=== PATIENT | female | born 1960 | race Caucasian/White ===

== ENCOUNTER 2017-11-25 10:31 | Emergency (ER) | payer BC, SELFPAY ==
[2017-11-25 10:46] VITALS: BP 127/77; PULSE 82; RESP 18; TEMP 36.6; O2SAT 97; BMI 30.1
--- NOTE | 2017-11-25 11:21 | HMH.EDUTC ---
[facility] [place] Disposition Clinical Impression: Viral upper respiratory illness Disposition: Home, Self-Care Condition on Discharge: Good Instructions: DI for Viral Upper Respiratory Infection -- Adult Additional Instructions: * No sign of bacterial infection. Likely viral. Virus can take 7-14 days to run their course * Monitor Temp. Follow up if fever develops * Encourage fluids, water, gatorade, powerade, pedialyte if infant/toddler/child * warm salt water gargles * warm fluids * sore throat lozenges * sleep elevated * humidifier/vaporizer * Start steroid today. Helps with inflammation therefore, cough and drainage. Follow directions on package. Rvwd side effects. Pt reports they have taken them before without complications. Prescriptions: predniSONE [Deltasone 10mg tablet] 10 mg PO BID #10 tab Referrals: Herbert Asencio MD [Primary Care Provider] - (Follow up IMMEDIATELY for new or worsening symptoms OR no noticeable improvement over the next 48-72 hours. 911 for difficulty breathing or swallowing) Time of Disposition: 11:39 Medical Decision Making - Jimenez Inquiry Pt receiving controlled substance: No Vital Signs: 11/25/17 10:46 11/25/17 11:31 Temperature 98 F 98.2 F Temperature Source Temporal Artery Scan Pulse Rate 79 Pulse Rate [Right Radial] 82 Respiratory Rate 18 18 Blood Pressure 122/85 Blood Pressure [Right Arm] 127/77 Blood Pressure Mean [Right Arm] 93 02 Sat by Pulse Oximetry 97 Oxygen Delivery Method Room Air Room Air [facility] HPI - General Stated complaint: congestion,cough Time Seen by Provider: 11/25/17 11:22 Mode of Arrival: Family Vehicle Source of Information: Patient Limitations: No Limitations Description of Symptoms (Recalled from Triage Doc. by RN): PT C/O SINUS DRAINAGE/CONGESTION, COUGH, AND RUNNY NOSE. HEENT Symptoms (Recalled from RN notes): Yes (SINUS DRIANAGE/CONGESTION/RUNNY NOSE) Resp Symptoms (Recalled from RN notes): Yes (COUGH) Skin Symptoms (Recalled from RN notes): No MS Symptoms (Recalled from RN notes): No Functional Status (Recalled from RN notes): NA - History of Present Illness Provider Complaint: c/o rhinorrhea, nasal congestion, cough since Monday, 3 days ago. Two co workers w/ bronchitis and one with ear infections. Cough worse yesterday evening despite mucinex until nyquil and vicks on feet then was finally able to sleep. Denies fever, aches, SOA, wheezing. Nonsmoker. - Related Data Previous Rx's Medication Instructions Recorded predniSONE [Deltasone 10mg tablet] 10 mg PO BID #10 tab 11/25/17 Allergies Allergy/AdvReac Type Severity Reaction Status Date / Time Sulfa (Sulfonamide Allergy Verified 11/25/17 10:53 Antibiotics) BEE STINGS Allergy Uncoded 11/25/17 10:53 - Worker's Comp Is this a Worker's Comp case?: No [facility] History I have reviewed the patient's past medical history: Yes Medical History: Reports:: Anxiety, Hyperlipidemia, Hypertension Denies:: Cancer, Diabetes Mellitus Type 1, Diabetes Mellitus Type 2, MRSA Other Surgeries: Yes: Other (detached retina 01/23 and hysterectomy 03/20) Amputation: No Fractures: No - Social History Smoking Status: Never smoker Alcohol Intake: never - Psychiatric History Expresses thoughts of harming self/others: None Suicide Plan Description: No Plan ROS Obtained: Yes Systems reviewed as appropriate & no additional complaints - Constitutional Constitutional: Reports as per HPI, Denies fatigue, Denies poor appetite - Eyes Eyes: Denies eye discharge, Denies itchy eyes - ENT Ears, Nose, Mouth, and Throat: Reports as per HPI, Denies difficulty swallowing, Denies otalgia, Denies pain with swallowing, Reports post nasal drip, Denies sinus pain, Reports sinus pressure, Reports sore throat ( only when I cough ), Denies throat swelling - Cardiovascular Cardiovascular: Denies chest pain, Denies irregular heart rhythm - Respiratory Respiratory: Yes as per HPI, No pain on inspirati
[2017-11-25 11:31] VITALS: BP 122/85; PULSE 79; RESP 18; TEMP 36.8; O2SAT 99
--- NOTE | 2017-11-25 11:32 | ED_ITS ---
[facility] [place] Clinical Impression: Viral upper respiratory illness Disposition: Home, Self-Care Condition on Discharge: Good Instructions: DI for Viral Upper Respiratory Infection -- Adult Additional Instructions: * No sign of bacterial infection. Likely viral. Virus can take 7-14 days to run their course * Monitor Temp. Follow up if fever develops * Encourage fluids, water, gatorade, powerade, pedialyte if infant/toddler/ child * warm salt water gargles * warm fluids * sore throat lozenges * sleep elevated * humidifier/vaporizer * Start steroid today. Helps with inflammation therefore, cough and drainage. Follow directions on package. Rvwd side effects. Pt reports they have taken them before without complications. Prescriptions: predniSONE [Deltasone 10mg tablet] 10 mg PO BID #10 tab Referrals: Herbert Asencio MD [Primary Care Provider] - (Follow up IMMEDIATELY for new or worsening symptoms OR no noticeable improvement over the next 48-72 hours. 911 for difficulty breathing or swallowing) Time of Disposition: 11:39 Medical Decision Making - Jimenez Inquiry Pt receiving controlled substance: No Vital Signs: 11/25/17 10:46 11/25/17 11:31 Temperature 98 F 98.2 F Temperature Source Temporal Artery Scan Pulse Rate 79 Pulse Rate [Right Radial] 82 Respiratory Rate 18 18 Blood Pressure 122/85 Blood Pressure [Right Arm] 127/77 Blood Pressure Mean [Right Arm] 93 02 Sat by Pulse Oximetry 97 Oxygen Delivery Method Room Air Room Air [facility] [place] HPI - General Stated complaint: congestion,cough Time Seen by Provider: 11/25/17 11:22 Mode of Arrival: Family Vehicle Source of Information: Patient Limitations: No Limitations Description of Symptoms (Recalled from Triage Doc. by RN): PT C/O SINUS DRAINAGE /CONGESTION, COUGH, AND RUNNY NOSE. HEENT Symptoms (Recalled from RN notes): Yes (SINUS DRIANAGE/CONGESTION/RUNNY NOSE) Resp Symptoms (Recalled from RN notes): Yes (COUGH) Skin Symptoms (Recalled from RN notes): No MS Symptoms (Recalled from RN notes): No Functional Status (Recalled from RN notes): NA - History of Present Illness Provider Complaint: c/o rhinorrhea, nasal congestion, cough since Monday, 3 days ago. Two co workers w/ bronchitis and one with ear infections. Cough worse yesterday evening despite mucinex until nyquil and vicks on feet then was finally able to sleep. Denies fever, aches, SOA, wheezing. Nonsmoker. - Related Data Previous Rx's Medication Instructions Recorded predniSONE [Deltasone 10mg tablet] 10 mg PO BID #10 tab 11/25/17 Allergies Allergy/AdvReac Type Severity Reaction Status Date / Time Sulfa (Sulfonamide Allergy Verified 11/25/17 10:53 Antibiotics) BEE STINGS Allergy Uncoded 11/25/17 10:53 - Worker's Comp Is this a Worker's Comp case?: No [facility] History I have reviewed the patient's past medical history: Yes Medical History: Reports:: Anxiety, Hyperlipidemia, Hypertension Denies:: Cancer, Diabetes Mellitus Type 1, Diabetes Mellitus Type 2, MRSA Other Surgeries: Yes: Other (detached retina 01/23 and hysterectomy 03/20) Amputation: No Fractures: No - Social History Smoking Status: Never smoker Alcohol Intake: never - Psychiatric History Expresses thoughts of harming self/others: None Suicide Plan Description: No Plan ROS Obtained: Yes Systems reviewed as appropriate
== END 2017-11-25 11:41 | disposition home or self-care (01) ==
PROVIDERS: Emergency Provider Nurse Practitioner Family; Family Provider Internal Medicine Adolescent Medicine; PCP Internal Medicine Adolescent Medicine
DX: J06.9 Acute upper respiratory infection, unspecified (principal); E78.5 Hyperlipidemia, unspecified; I10 Essential (primary) hypertension
CPT/HCPCS: 99201

== ENCOUNTER → 2017-12-14 08:45 | Outpatient (CLI) | payer BC, SELFPAY ==
--- NOTE | 2017-12-14 08:53 | US_ITS ---
US liver Ordering Physician: Lois Lara Patient Age: 57 years: Female HISTORY: ITS.REASON: ELEVATED LIVER ENZYMES elevated liver enzymes Patient on cholesterol medication TECHNIQUE: Ultrasound right upper quadrant and liver COMPARISON : No relevant studies FINDINGS : Pancreas: Fair visualization. Head and body and medial tail of pancreas appear satisfactory Suspect diffuse fatty change given its diffuse echogenic character LIVER no focal lesions no bili ductal dilatation. Liver appears satisfactory Gallbladder. No gallstones gallbladder wall normal to upper normal thickness in some areas Common duct normal measures 3.2 mm at hilum of liver. Right kidney. Normal 10.6 cm length === IMPRESSION: === No significant findings Liver unremarkable. No focal lesions. . Common duct normal with no biliary ductal dilatation Gallbladder. No gallstones Pancreas and right kidney satisfactory
== END ==
PROVIDERS: Family Provider Internal Medicine Adolescent Medicine; PCP Internal Medicine Adolescent Medicine; Visit Provider Nurse Practitioner Family
DX: R74.8 Abnormal levels of other serum enzymes (principal)
CPT/HCPCS: 76705

== ENCOUNTER 2019-03-02 14:48 | Emergency (ER) | payer BC, SELFPAY ==
--- NOTE | 2019-03-02 14:58 | XR_ITS ---
XR forearm LT 2V, XR humerus LT Ordering Physician: Matty Cabral APRN Patient Age: 58 years: Female HISTORY: ITS.REASON: INJURYpain for forearm and upper arm. TECHNIQUE: Left Forearm: AP and lateral view Left Humerus:: AP and lateral view COMPARISON :None prior . ========= LEFT FOREARM: AP and lateral view of forearm reveal no fracture. No acute findings.. Osseous structures well mineralized and intact. This forearm study includes limited 2 views of the left elbow which appears unremarkable. Limited 2 views of the wrist are also included and show no fracture or acute findings.. Note subtle inhomogeneous appearance at the distal radial metaphysis which I believe most likely technical artifact. Typically noting the mottle appearance elsewhere in this region on today's study.... However if pain should persist or progress distal radius or wrist follow-up plain film of breast with more optimal technique suggested. IMPRESSION. Left forearm intact. No fracture. ========= LEFT HUMERUS::. . 2 views of the humerus reveal no fracture. Bones well mineralized and intact. The 2 views of the humerus includes 2 view of the left shoulder which appears satisfactory on these images. IMPRESSION: Negative left humerus.. No fracture
[2019-03-02 15:10] VITALS: BP 169/53; PULSE 45; RESP 20; TEMP 36.8; O2SAT 100; BMI 32.5
--- NOTE | 2019-03-02 15:30 | HMH.EDUTC ---
[facility] [place] Disposition Clinical Impression: Sprain and strain Disposition: Home, Self-Care Condition on Discharge: Good Instructions: How to Prevent Falls, Elbow Sprain Additional Instructions: follow up with pcp follow up with ortho for further testing if no improvement rest Ice with cold pack for 20 minutes remove 20 minutes may repeat for comfort Elevate Ibuprofen every 6 hours as needed for pain or inflammation. If needs something more you can take Tylenol every 4 hours as needed as long as her primary care has told he was okayed for you to take both. Follow-up immediately if new or worsening symptoms or no noticeable improvement over the next 3-5 days. Referrals: Herbert Asencio MD [Primary Care Provider] - Tatyana Willams MD [Physician] - Time of Disposition: 16:05 Medical Decision Making - Jimenez Inquiry Pt receiving controlled substance: No Vital Signs: 03/02/19 15:10 Temperature 98.2 F Temperature Source Oral Pulse Rate [Right Radial] 45 L Respiratory Rate 20 Blood Pressure [Right Arm] 169/53 H Blood Pressure Mean [Right Arm] 91 Blood Pressure Source [Right Arm] Automatic Cuff Blood Pressure Position [Right Arm] Sitting 02 Sat by Pulse Oximetry 100 Oxygen Delivery Method Room Air Orders (Tests/Meds): ORDERS Category Date Time Status Forearm XR left 2 views [XR forearm LT 2V] Stat Exams 03/02/19 14:58 Taken XR humerus LT Stat Exams 03/02/19 14:58 Taken [facility] [place] HPI - General Chief complaint: Fall Stated complaint: Ao fell, left arm apin Time Seen by Provider: 03/02/19 15:30 Mode of Arrival: Ambulatory Source of Information: Patient Limitations: No Limitations Description of Symptoms (Recalled from Triage Doc. by RN): PT C/O LT ARM INJURY FOLLOWING A FALL HEENT Symptoms (Recalled from RN notes): No Resp Symptoms (Recalled from RN notes): No Skin Symptoms (Recalled from RN notes): No MS Symptoms (Recalled from RN notes): Yes (LT ARM INJURY) Functional Status (Recalled from RN notes): N/A - History of Present Illness Provider Complaint: 58 yr old female presents for fall yesterday. Pt states she fell twisted both ankles and landed on left arm. Pt reports left elbow/arm pain - Related Data Home Medications Medication Instructions Recorded Confirmed aspirin 81 mg tablet,delayed 81 mg PO DAILY 07/17/18 09/18/18 release atorvastatin 20 mg tablet 20 mg PO DAILY 07/17/18 09/18/18 cholecalciferol (vitamin D3) 400 400 unit PO DAILY 07/17/18 09/18/18 unit tablet coenzyme Q10 100 mg capsule 100 mg PO DAILY 07/17/18 09/18/18 cranberry concentrate-ascorbic 1 cap PO DAILY cap 07/17/18 09/18/18 acid 4,200 mg-20 mg capsule escitalopram 10 mg tablet 10 mg PO DAILY 07/17/18 09/18/18 lisinopril 10 1 tab PO DAILY 07/17/18 09/18/18 mg-hydrochlorothiazide 12.5 mg tablet Allergies Allergy/AdvReac Type Severity Reaction Status Date / Time Sulfa (Sulfonamide Allergy Verified 09/18/18 10:36 Antibiotics) BEE STINGS Allergy Uncoded 09/18/18 10:36 - Worker's Comp Is this a Worker's Comp case?: No [facility] History - Hepatitis A Screen Drug use history?: No High risk sexual behaviors?: No History of sexually transmitted infection?: No Currently employed?: No Childcare worker?: No Do you have indoor plumbing?: Yes Do you have electricity?: Yes Attestation statement:: This patient has been screened for Hepatitis A risk factors. I have reviewed the patient's past medical history: Yes Medical History: Reports:: Anxiety, Hyperlipidemia, Hypertension, Urinary Tract Infection Denies:: Cancer, Diabetes Mellitus Type 1, Diabetes Mellitus Type 2, Internal Pacemaker, MRSA, Seizures Other Medical History: Denies: Blood Transfusion Reaction Laterality Cases: Bilateral: Tonsillectomy Other Surgeries: Yes: Hysterectomy-Total, Tubal Ligation, Other. No: Pacemaker Amputation: No Fractures: No - Social History Smoking Status: Never smoker Alcohol Intake: never Alcohol Intake
--- NOTE | 2019-03-02 15:35 | PC.NURSE ---
PT TO RAD
[2019-03-02 16:11] VITALS: BP 169/53; PULSE 45; RESP 20; TEMP 36.8; O2SAT 100
== END 2019-03-02 16:13 | disposition home or self-care (01) ==
PROVIDERS: Emergency Provider Nurse Practitioner Family; PCP Internal Medicine Adolescent Medicine
DX: S53.402A Unspecified sprain of left elbow, initial encounter (principal); W01.0XXA Fall on same level from slipping, tripping and stumbling without subsequent striking against object, initial encounter; E78.5 Hyperlipidemia, unspecified; I10 Essential (primary) hypertension; Z88.2 Allergy status to sulfonamides
CPT/HCPCS: 73060; 73090; 99201

== ENCOUNTER → 2020-07-28 10:56 | Outpatient (POV) | payer BC, SELFPAY | PROVIDERS: Visit Provider Dermatology | DX: Z00.00 Encounter for general adult medical examination without abnormal findings (principal) ==

== ENCOUNTER → 2020-08-03 09:55 | Outpatient (CLI) | payer BC, SELFPAY ==
--- NOTE | 2020-08-03 10:00 | XR_ITS ---
PROCEDURE: XR KNEE LT 4V CLINICAL INDICATION: LT knee pain COMPARISON: No exams were available for comparison FINDINGS: No fracture or dislocation. No lytic or blastic change. There is normal mineralization. The joint spaces are well-preserved. No significant degenerative/arthritic changes. No erosive changes evident. Other findings:None. IMPRESSION: No acute findings. Dictated by: John Tavares MD 08/03/2020 10:27 John Tavares MD in OV 08/03/2020 10:27
== END ==
PROVIDERS: PCP Internal Medicine Adolescent Medicine; Visit Provider Orthopaedic Surgery
DX: M25.562 Pain in left knee (principal)
CPT/HCPCS: 73564

== ENCOUNTER → 2020-08-18 13:47 | Outpatient (POV) | payer BC, SELFPAY | PROVIDERS: Visit Provider Dermatology | DX: Z00.00 Encounter for general adult medical examination without abnormal findings (principal) ==

== ENCOUNTER → 2021-07-26 10:41 | Outpatient (CLI) | payer BC, SELFPAY ==
[2021-07-26 11:54] LABS: Alanine Aminotransferase 30 U/L (12-78); Albumin Level 4.2 g/dl (3.5-5.0); Albumin/Globulin Ratio 1.6 (1.1-1.8); Alkaline Phosphatase 129 U/L (38-126); Anion Gap 9.4 mEq/L (5-15); Aspartate Amino Transferase 28 U/L (14-36); Bilirubin,Total 0.5 mg/dl (0.2-1.3); Blood Urea Nitrogen 9 mg/dl (7-17); Calcium 9.4 mg/dl (8.4-10.2); Carbon Dioxide 34 mmol/L (22.0-30.0); Chloride 100 mmol/L (98-107); Chol/HDL Ratio 3.6 (1-3.5); Cholesterol 172 mg/dl (140-200); Estimated Glomerular Filt Rate 125 ml/min (>60); GFR (African American) 151 ML/MIN (>60); Globulin 2.6 g/dL (1.3-3.2); Glucose 92 mg/dl (74-100); HDL Cholesterol 48 mg/dl (40-60); Potassium 4.4 mmoL/L (3.5-5.1); Sodium 139 mmol/L (136-145); Total Protein,Serum 6.8 g/dl (6.3-8.2); Triglycerides 106 mg/dl (30-150); VLDL Cholesterol 21 mg/dL (0-40)
[2021-07-26 12:05] LABS: Direct LDL Cholesterol 108.01 mg/dL (100-129)
[2021-07-26 12:22] LABS: Thyroid Stimulating Hormone 1.19 uIU/mL (0.465-4.68)
== END ==
PROVIDERS: Visit Provider Nurse Practitioner Family
DX: I10 Essential (primary) hypertension (principal); E78.5 Hyperlipidemia, unspecified; R63.5 Abnormal weight gain
CPT/HCPCS: 36415; 80053; 80061; 84443

== ENCOUNTER → 2021-08-31 10:00 | Outpatient (POV) | payer BC, SELFPAY | PROVIDERS: Visit Provider Dermatology | DX: Z00.00 Encounter for general adult medical examination without abnormal findings (principal) ==

== ENCOUNTER → 2022-07-05 11:10 | Outpatient (POV) | payer BC, SELFPAY | PROVIDERS: Visit Provider Dermatology | DX: Z00.00 Encounter for general adult medical examination without abnormal findings (principal) ==

== ENCOUNTER → 2023-08-07 11:15 | Outpatient (CLI) | payer BC, SELFPAY ==
--- OUTSIDE RECORDS SUMMARY | 2023-08-07 11:18 | XMS_ITS | Patient Health Record ---
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 Name Role Phone MiliHerbert estrada Primary Care Provider Lois Lara [phone] ALLERGIES Allergen (clinical drug ingredient) Drug/Non Drug Allergy documented on EMR Reaction Allergy Type Onset Date Status Sulfa hives Drug Allergy Active RESULTS Component Value Reference Range Notes LIPID PANEL, STANDARD (7600) Reviewed date:02/03/2023 02:16:25 PM Interpretation: Performing Lab:ROGELIO, [facility] Alyssa-Sesar [address] [facility] CenterbaldevCommunity [facility] [id number] Aaron Diallo Notes/Report: NON-FASTING; NON-FASTING; NON-FASTING; NON-FASTING FASTING:YES FASTING: YES CHOLESTEROL, TOTAL 159 <200 mg/dL HDL CHOLESTEROL 46 > OR = 50 mg/dL TRIGLYCERIDES 113 <150 mg/dL LDL-CHOLESTEROL 92 Reference range: <100 Desirable range <100 mg/dL for primary prevention; <70 mg/dL for patients with CHD or diabetic patients with > or = 2 CHD risk factors. LDL-C is now calculated using the Samantha calculation, which is a validated novel method providing better accuracy than the Friedewald equation in the estimation of LDL-C. Juan Manuel HARRY et al. KODI. 2013;310(19): 2073-2929 (http://education.[employer].Iter[employer] Studio/faq/UAK132) CHOL/HDLC RATIO 3.5 <5.0 (calc) NON HDL CHOLESTEROL 113 <130 mg/dL (calc)
--- NOTE | 2023-08-07 11:25 | XR_ITS ---
FINAL REPORT CLINICAL HISTORY: JAMA HIP PAIN, no injury COMPARISON: None FINDINGS: RIGHT HIP Two views of the right hip demonstrate no acute fracture or dislocation. The joint spaces appear normal. The visualized bony structures are well aligned. No soft tissue abnormality is seen. IMPRESSION: No acute bony abnormality. Reviewed, Interpreted and Dictated by Gregorio Garza MD Transcribed by Jeanette Garrido Authenticated and [facility]
--- NOTE | 2023-08-07 11:25 | XR_ITS ---
FINAL REPORT CLINICAL HISTORY: JAMA HIP PAIN, no recent injury FINDINGS: LEFT HIP: Two views of the left hip demonstrate no acute fracture or dislocation. The joint spaces appear normal. The visualized bony structures are well aligned. No soft tissue abnormality is seen. IMPRESSION: No acute bony abnormality. Reviewed, Interpreted and Dictated by Gregorio Garza MD Transcribed by Jeanette Garrido Authenticated and . [facility]
== END ==
PROVIDERS: PCP Nurse Practitioner Family; Visit Provider Nurse Practitioner Family
DX: M25.551 Pain in right hip (principal); M25.552 Pain in left hip
CPT/HCPCS: 73502

== ENCOUNTER 2023-09-12 14:28 | Outpatient (POV) | payer BC, SELFPAY | END 2023-09-12 23:59 | disposition home or self-care (01) | LOC: SC 14:28 | PROVIDERS: PCP Nurse Practitioner Family; Visit Provider Dermatology | DX: Z00.00 Encounter for general adult medical examination without abnormal findings (principal) ==

== ENCOUNTER 2023-12-06 09:47 | Outpatient (CLI) | payer BC, SELFPAY ==
--- NOTE | 2023-12-06 09:53 | XR_ITS ---
FINAL REPORT CLINICAL HISTORY: ACUTE TRAUMATIC PAIN LF HIP COMPARISON: None FINDINGS: LEFT HIP: Two views of the left hip demonstrate no acute fracture or dislocation. There is mild heterotrophic change of the sacroiliac joints. The visualized bony structures are well aligned. No soft tissue abnormality is seen. IMPRESSION: No acute bony abnormality. Mild heterotrophic change of the SI joints. Reviewed, Interpreted and Dictated by Gabriel Pratt MD Transcribed by [place]ette Garrido Authenticated and [facility]
== END 2023-12-06 23:59 ==
LOC: RAD 09:48
PROVIDERS: PCP Nurse Practitioner Family; Visit Provider Nurse Practitioner Family
DX: G89.11 Acute pain due to trauma (principal); M25.552 Pain in left hip
CPT/HCPCS: 73502

== ENCOUNTER 2025-03-03 13:14 | Outpatient (CLI) | payer MEDICARE, SELFPAY ==
--- OUTSIDE RECORDS SUMMARY | 2024-12-14 17:30 | XMS_ITS ---
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 Conversion Encounter Medications Medication SIG (Take, Route, Frequency, Duration) Notes Start Date End Date Status Multivitamin - 1 tab(s) orally once a day Active Amoxicillin-Pot Clavulanate 875-125 MG 1 tab(s) orally every 12 hours for 10 days 10/19/2024 Active PROBIOTIC FORMULA (BACILLUS COAGULANS) - 1 CAP(S) ORALLY ONCE A DAY *Please review for potential replacement for e-prescription and drug interaction check* Active Lipitor 20 MG 1 tab(s) orally once a day (at bedtime) for 90 days Active B-12 1000 MCG 1 tab(s) orally once a day for 30 day(s) Active Meclizine HCl 25 MG 1 tab(s) orally 3 times a day prn vertigo for 7 day(s) 12/10/2019 Active Vitamin D3 125 MCG (5000 UT) as directed orally once a day for 30 day(s) Active Aspirin 81 MG 1 tab(s) orally once a day for 30 day(s) Active Escitalopram Oxalate 10 MG 1 tab(s) orally once a day for 90 days Active Lisinopril-hydroCHLOR Othiazide 10-12.5 MG 1 tab(s) orally once a day for 90 days Active Cranberry 500 MG 1 tab po once a day Active Co Q-10 100 MG 1 TAB QD *Please review a nd pick correct strength-formulatio n from [facility]. If intended option is not shown, discontinue and re-order from Quick Search* Active ZyrTEC Allergy 10 MG 1 tab(s) orally once a day Active Encounters Encounter Location Date Provider Diagnosis [facility] [address] [facility] [address] [place] [address] 12/14/2024 Provider Migration Acute non-recurrent maxillary sinusitis J01.00 Assessments Encounter Date Diagnosis (ICD Code) Assessment Notes Treatment Notes Treatment Clinical Notes Section Notes 12/14/2024 Acute non-recurrent maxillary sinusitis (ICD-10 - J01.00) Plan Of Treatment Medication Medication Name Sig Start Date Stop Date Notes Amoxicillin-Pot Clavulanate 875-125 MG 1 tab(s) orally every 12 hours for 10 days 10/19/2024 Next Appt Details Provider Name:Lois Red ce, 08/21/2025 09:00:00 AM, [address] [facility] [address] [facility], [address], [place], [address], Progress Notes * PRAFUL DaB:1960 (64 yo F)Acc No.[id number]:12/14/2024 Patient: Elizabeth COMER Provider: Keely Milton :1960 A ge:64 Y S ex:Female Date:12/14/2024 Address:[facility] [address], [facility], [id number] Pcp:Herbert Asencio Subjective: * Chief Complaints: * [facility] * Medical History: * Medications: T aking PROBIOTIC FORMULA (BACILLUS COAGULANS) - CAPSULE 1 CAP(S) ORALLY ONCE A DAY , Notes to Pharmacist: *Please review for potential replacement for e-prescription and drug interaction check*, Taking B-12 1000 MCG Tablet 1 tab(s) orally once a day , Taking Multivitamin - Tablet 1 tab(s) orally once a day , Taking Cranberry 500 MG Tablet 1 tab po once a day , Taking Co Q-10 100 MG 1 TAB QD , Notes to Pharmacist: *Please review and pick correct strength-formulation from [employer] options. If intended option is not shown, discontinue and re-order from Quick Search*, Taking ZyrTEC Allergy 10 MG Tablet 1 tab(s) orally once a day , Taking Meclizine HCl 25 MG Tablet 1 tab(s) orally 3 times a day prn vertigo , Taking Vitamin D3 125 MCG (5000 UT) Capsule as directed orally once a day , Taking Aspirin 81 MG Tablet Delayed Release 1 tab(s) orally once a day , Taking Escitalopram Oxalate 10 MG Tablet 1 tab(s) orally once a day , Taking Lisinopril-hydroCHLOROthiazide 10-12.5 MG Tablet 1 tab(s) orally once a day , Taking Lipitor 20 MG Tablet 1 tab(s) orally once a day (at bedtime) * Allergies: S ULFA: hives. Objective: * Vitals: Assessment: * Assessment: 1. A cute non-recurrent maxillary sinusitis - J01.00 (Primary) Plan: * Treatment: * * Electronic signature of Prov ider Migration on 03/03/2025 at 01:29 PM EDT Sign off status: Pending * Provider: Keely diamond Migration Date: 0 12/14/2024 Generated for Tatum zacarias/Beena/Jaylenitting on: 0 03/03/2025 01:29 PM EDT
--- OUTSIDE RECORDS SUMMARY | 2025-02-20 05:00 | XMS_ITS ---
Author Organization [facility] Address [address] [place], [place] [address] Care Team Providers Care Train Crew Member Name Role Phone Herbert Asencio Primary Care Provider Lois Lara [phone] Allergies Allergen (clinical drug ingredient) Drug/Non Drug Allergy documented on EMR Reaction Allergy Type Onset Date Status SULFA (uncoded) hives Allergy Acti ve Results Component Value Reference Range Notes LIPID PANEL, STANDARD (7600) Reviewed date:02/24/2025 10:08:04 AM Interpretation: Performing Lab:[facility] [employer] Alyssa[id number] [facility], Sesar ErwinYrafIX[address] Aaron Diallo Notes/Report: NON-FASTING; NON-FASTING; NON-FASTING FASTING:YES FASTING: YES CHOLESTEROL, TOTAL 166 <200 mg/dL HDL CHOLESTEROL 60 > OR = 50 mg/dL TRIGLYCERIDES 100 <150 mg/dL LDL-CHOLESTEROL 86 Reference range: <100 Desirable range <100 mg/dL for primary prevention; <70 mg/dL for patients with CHD or diabetic patients with > or = 2 CHD risk factors. LDL-C is now calculated using the Samantha calculation, which is a validated novel method providing better accuracy than the Friedewald equation in the estimation of LDL-C. Juan Manuel HARRY et al. KODI. 2013;310(19): 7298-1442 (http://education.RedSeguro.com/faq/JGX436) CHOL/HDLC RATIO 2.8 <5.0 (calc) NON HDL CHOLESTEROL 106 <130 mg/dL (calc) For patients with diabetes plus 1 major ASCVD risk factor, treating to a non-HDL-C goal of <100 mg/dL (LDL-C of <70 mg/dL) is considered a therapeutic option. COMPREHENSIVE METABOLIC PANE L (91884) Reviewed date:02/24/2025 10:08:04 AM Interpretation: Performing Lab:[facility] [employer] [id number] [facility], [facility] [id number] Aaron Diallo Notes/Report: NON-FASTING; NON-FASTING; NON-FASTING FASTING:YES FASTING: YES GLUCOSE 79 65-99 mg/dL Fasting reference interval UREA NITROGEN (BUN) 13 7-25 mg/dL CREATININE 0.56 0.50-1.05 mg/dL EGFR 101 > OR = 60 mL/min/1.73m2 BUN/CREATININE RATIO SEE NOTE: 6-22 (calc) Not Reported: BUN and Creatinine are within reference range. SODIUM 140 135-146 mmol/L POTASSIUM 4.5 3.5-5.3 mmol/L CHLORIDE 102 98-110 mmol/L CARBON DIOXIDE 29 20-32 mmol/L CALCIUM 10.1 8.6-10.4 mg/dL PROTEIN, TOTAL 7.2 6.1-8.1 g/dL ALBUMIN 4.7 3.6-5.1 g/dL GLOBULIN 2.5 1.9-3.7 g/dL (calc) ALBUMIN/GLOBULIN RATIO 1.9 1.0-2.5 (calc) BILIRUBIN, TOTAL 0.5 0.2-1.2 mg/dL ALKALINE PHOSPHATASE 116 37-153 U/L AST 16 10-35 U/L ALT 14 6-29 U/L HEMOGLOBIN A1c (496) Reviewed date:02/24/2025 10:08:04 AM Interpretation: Performing Lab:[facility] [employer] [id number] [facility], [facility] MinneapolisKazgBN[address] Aaron Diallo Notes/Report: NON-FASTING; NON-FASTING; NON-FASTING FASTING:YES FASTING: YES HEMOGLOBIN A1c 5.8 <5.7 % For someone without known diabetes, a hemoglobin A1c value between 5.7% and 6.4% is consistent with prediabetes and should be confirmed with a follow-up test. For someone with known diabetes, a value <7% indicates that their diabetes is well controlled. A1c targets should be individualized based on duration of diabetes, age, comorbid conditions, and other considerations. This assay result is consistent with an increased risk of diabetes. Currently, no consensus exists regarding use of hemoglobin A1c for diagnosis of diabetes for children. REASON FOR VISIT Welcome to Medicare Medications Medication SIG (Take, Route, Frequency, Duration) Notes Start Date End Date Status GLP-1 Belting Inspector - as directed Active PROBIOTIC FORMULA (BACILLUS COAGULANS) - 1 CAP(S) ORALLY ONCE A DAY *Please review for potential replacement for e-prescription and drug interaction check* Active Lipitor 20 MG 1 tab(s) orally once a day (at bedtime) for 90 days Active B-12 1000 MCG 1 tab(s) orally once a day for 30 day(s) Active Lisinopril-hydroCHLOR Othiazide 10-12.5 MG 1 tab(s) orally once a day for 90 days Active Escitalopram Oxalate 10 MG 1 tab(s) orally once a day for 90 days Active Vitamin D3 125 MCG (5000 UT) as directed orally once a day for 30 day(s) Active Aspirin 81 MG 1 tab(s) orally once a day for 30 day(s) Active Gemtesa 75 MG 1 tablet Orally Once a day for 30 day(s) 02/20/2025 Active Multivitamin - 1 tab(s) orally once a day Active Cranberry 500 MG 1 tab po once a day Active Co Q-10 100 MG 1 TAB QD *Please review a nd pick correct strength-formulatio n from [employer]IO options. If intended option is not shown, discontinue and re-order from Quick Search* Active ZyrTEC Allergy 10 MG 1 tab(s) orally once a day Active Meclizine HCl 25 MG 1 tab(s) orally 3 times a day prn vertigo for 7 day(s) 12/10/2019 Active Immunizations Vaccine Route Administration Date Status Comme nts Prevnar PCV-21 (Pneumococcal conjugate 20) IM Intramuscular 02/20/2025 Administered Problems Problem Type SNOMED Code ICD Code Onset Dates Problem Status W/U Status Risk Notes Problem [id number] Urge urinary incontinence (N39.41) Active confirmed Problem 855876406 BMI 31.0-31.9,adult (Z68.31) Active confirmed Vital Signs Temperature 97.5 degrees Fahrenheit 02/21/20 25 Blood pressure systolic 112 mm Hg 02/21/20 25 Blood pressure diastolic 78 mm Hg 025 Heart Rate 80 /min 02/20/2025 Height 5 ft 8.75 in in 02/20/2025 Weight 210.2 lbs 02/20/2025 BMI 31.26 kg/m2 02/20/2025 Encounters Encounter Location Date Provider Diagnosis [facility] PED AMILCAR [address] [place] [address] 02/20/2025 Lois Lara Essential hypertensi on I10 ; Welcome to Medicare preventive visit Z00.00 ; Hyperlipidemia LDL goal <100 E78.5 ; Anxiety F41.9 ; Prediabetes R73.03 ; Encounter for immunization Z23 ; Urge urinary incontinence N39.41 ; BMI 31.0-31.9,adult Z68.31 and Asymptomatic postmenopausal state Z78.0 Assessments Encounter Date Diagnosis (ICD Code) Assessment Notes Treatment Notes Treatment Clinical Notes Section Notes 02/20/2025 Essential hypertension (ICD-10 - I10) Pressure well controlled on current regimen 02/20/2025 Welcome to Medicare preventive visit (ICD-10 - Z00.00) Medicare screening guidelines, vaccination recommendations , safety, HRA reviewed 02/20/2025 Hyperlipidemia LDL goal <100 (ICD-10 - E78.5) continue statin therapy 02/20/2025 Anxiety (ICD-10 - F41.9) continue low dose lexapro 02/20/2025 Prediabetes (ICD-10 - R73.03) continued dietary efforts encouraged 02/20/2025 Encounter for immunization (ICD-10 - Z23) 02/20/2025 Urge urinary incontinence (ICD-10 - N39.41) trial of Gemtesa...if not effective will refer to URO for exam 02/20/2025 BMI 31.0-31.9,adult (ICD-10 - Z68.31) complicates all aspects of care, actively working on weight loss 02/20/2025 Asymptomatic postmenopausal state (ICD-10 - Z78.0) Plan Of Treatment Medication Medication Name Sig Start Date Stop Date Notes Gemtesa 75 MG 1 tablet Orally Once a day for 30 day(s) 08/2025 Treatment Notes Assessment Notes Essential hypertension Pressure well con trolled on current regimen Hyperlipidemia LDL goal <[address] atin therapy Anxiety continue low dose le xapro Pending Test Test Name Order Date DEXA Hip and Spine - Screening Next Appt Details Follow Up: 6 Months, Reason: Provider Name:Lois Red ce, 08/21/2025 09:00:00 AM, [address], [address], [place], [address], Progress Notes * Da BASILIOB:1960 (64 yo F)Acc No.[id number]:02/20/2025 Progress Notes Patient: Elizabeth COMER Provider: IVAN Arboleda :1960 A ge:64 Y S ex:Female Date:02/20/2025 Address:[facility] [address], [facility], [id number] Pcp:Herbert Asencio Subjective: * Chief Complaints: * 1 . Welcome to Medicare. * HPI: g en: 64 year old female presents today for routine 6 mo follow up for HTN, HLD and anxiety. Also for Welcome to Medicare. No acute concerns. Denies medication side effects. Taking lexapro 5mg most nights of the week, helps with sleep. mood has been good overall. Colonoscopy 2012- recommended again in 10 years. Cologuard 2022 normal. UTD on Mammogram Has had to stop Wegovy since now covered by Medicare insurance. Taking compounded GLP1I through [facility] which has at least helped her to not gain additional weight, still titrating dose. + snoring, no prior sleep study she also expresses interest in addressing chronic bladder symptoms. has had some urge incontinence for a long time but now having difficulty with urgency. no prior medication nor procedure for this. she is s/p EDMUND. * ROS: F UNCTIONAL STATUS: ADLS I ndependent for all ADL/IADL. R ESPIRATORY: no S hortness of breath. n o C ough. ? C ARDIOLOGY: Reviewed, No Symptoms Reported: Y es. C ONSTITUTIONAL: Weight gain y es. n o F ever. D ERMATOLOGY: Reviewed, No Symptoms Reported: Y es. P ositive for?follows routinely with dermatology. E NDOCRINOLOGY: Reviewed, No Symptoms Reported: Y es. G ASTROENTEROLOGY: Reviewed, No Symptoms Reported: Y es. n o V omiting. n o A bdominal pain. n o D iarrhea. n o C onstipation. M USCULOSKELETAL: Joint stiffness y es. N EUROLOGY: Reviewed, No Symptoms Reported: Y es. P SYCHOLOGY: See HPI Y es. U ROLOGY: See HPI Y es. * Medical History: t otal hysterectomy March 2009, Hypertension, Hyperlipidemia, Plantar fasciitis, Migraines, Retinal detatchment-left eye, Colonoscopy 2012, normal, Cataract-left eye, Basal Cell Cancer removed right chest. * Surgical History: t otal hysterectomy 2008, Tubal ligation , Tonsillectomy , detached retina 2014, bilateral cataract surgery 06/2019 and 07/2019, Basal cell removed from chest 08/2020, Right eye surgery 12/2020, Colonoscopy 2012. * Hospitalization/Major Diagno stic Procedure: H ysterectomy , Childbirth . * Family History: F ather: , Cholesterol, HTN, diagnosed with Hypertension. M other: , Cholesterol, HTN, early dementia, diagnosed with Hypertension. P aternal Grand Father: , Lung Cancer, diagnosed with Heart Disease. P aternal Grand Mother: , diagnosed with Hypertension. M aternal Grand Father: , Leukemia. M aternal Grand Mother: , diagnosed with Hypertension. M aternal uncle: alive, 1 brother had cancer, . M aternal aunt: alive, Heart Surgery. C hildren: alive, daughter-migraines. 2 son(s) , 1 daughter(s) - healthy. . * Social History: S moking A re you a:: nonsmoker. R ecreational drug use: no. Exercise: no. Home smoke detector use: yes. Caffeine: yes, frequency:10-12 oz every 3 days. Living Will: Yes. Alcohol: no. Sexually active: yes. Travel outside [place]: no. Occupation: retired. * Medications: T aking GLP-1 Belting Inspector - Kit as directed , Taking PROBIOTIC FORMULA (BACILLUS COAGULANS) - CAPSULE 1 [...] tab(s) orally once a day (at bedtime) , Discontinued Amoxicillin-Pot Clavulanate 875-125 MG Tablet 1 tab(s) orally every 12 hours , Medication List reviewed and reconciled with the patient * Allergies: S ULFA: hives. Objective: * Vitals: N urse: KJ, Pain: 0, Temp: 97.5, RR: 18, HR: 80, BP: 112/78, Ht: 5 ft 8.75 in, Wt: 210.2, BMI:31.26. * Examination: G eneral Examination: General P leasant and Cooperative, NAD on RA. Heart: R RR, No m/r/g/h, Nl S1S2. Lungs: Clear to auscultation bilaterally. Abdomen: Soft, NT/ND, BS present. Neurologic Exam: Alert and oriented x 3. Skin: w ithout acute rashes. Peripheral pulses: n ormal (2+) bilaterally. Extremities: no clubbing, no edema, 2+ pedal pulses. neck s upple,, no thyromegaly,, no lymphadenopathy,. Psych N ormal Mood/Affect. Assessment: * Assessment: 1. W elcome to Medicare preventive visit - Z00.00 (Primary) 2 . E ssential hypertension - I10 3 . H yperlipidemia LDL goal <100 - E78.5 4 . A nxiety - F41.9 5 . P rediabetes - R73.03 6 . E ncounter for immunization - Z23 7 . U rge urinary incontinence - N39.41 ?8. B OH 31.0-31.9,adult - Z68.31 9 . A symptomatic postmenopausal state - Z78.0 Plan: * Treatment: 2. E ssential hypertension L AB: LIPID PANEL, STANDARD (7600) (Collection Date & Time - 02/20/2025 09:54 AM) Value Reference Range T RIGLYCERIDES 100 <150 - mg/dL * C HOLESTEROL, TOTAL 166 <200 - mg/dL * H DL CHOLESTEROL 60 > OR = 50 - mg/dL * L DL-CHOLESTEROL 86 - mg/dL (calc) * C HOL/HDLC RATIO 2.8 <5.0 - (calc) * N ON HDL CHOLESTEROL 106 <130 - mg/dL (calc) * Deisy Scott 02/24/2025 10:07:57 AM EDT > Patient informedThis lab was reviewed by Deisy Scott on 02/24/2025 at 10:08 AM EDT ?LAB: COMPREHENSIVE METABOLIC PANEL (11813) (Collection Date & Time - 02/20/2025 09:54 AM)* Value Reference Range G LUCOSE 79 65-99 - mg/dL * U SEBASTIÁN NITROGEN (BUN) 13 7-25 - mg/dL * C REATININE 0.56 0.50-1.05 - mg/dL * B UN/CREATININE RATIO SEE NOTE: 6-22 - (calc) * S ODIUM 140 135-146 - mmol/L * P OTASSIUM 4.5 3.5-5.3 - mmol/L * C HLORIDE 102 98-110 - mmol/L * C ARBON DIOXIDE 29 20-32 - mmol/L * C ALCIUM 10.1 8.6-10.4 - mg/dL * P ROTEIN, TOTAL 7.2 6.1-8.1 - g/dL * A LBUMIN 4.7 3.6-5.1 - g/dL * G LOBULIN 2.5 1.9-3.7 - g/dL (calc ) * A LBUMIN/GLOBULIN RATIO 1.9 1.0-2.5 - (calc) * B ILIRUBIN, TOTAL 0.5 0.2-1.2 - mg/dL * A LKALINE PHOSPHATASE 116 37-153 - U/L * A ST 16 10-35 - U/L * A LT 14 6-29 - U/L * E GFR 101 > OR = 60 - mL/min/1 .73m2 * Deisy Scott 02/24/2025 10:07:57 AM EDT > Patient informedThis lab was reviewed by Deisy Scott on 02/24/2025 at 10:08 AM EDT ?LAB: HEMOGLOBIN A1c (496) (Collection Date & Time - 02/20/2025 09:54 AM)* Value Reference Range H EMOGLOBIN A1c 5.8 H <5.7 - % * Deisy Scott 02/24/2025 10:07:57 AM EDT > Patient informedThis lab was reviewed by Deisy Scott on 02/24/2025 at 10:08 AM EDT Notes: Pressure well controlled on current regimen??3.?Hyperlipidemia LDL goal <100?LAB: LIPID PANEL, STANDARD (7600) (Collection Date & Time - 02/20/2025 09:54 AM)* Value Reference Range T RIGLYCERIDES 100 <150 - mg/dL * C HOLESTEROL, TOTAL 166 <200 - mg/dL * H DL CHOLESTEROL 60 > OR = 50 - mg/dL * L DL-CHOLESTEROL 86 - mg/dL (calc) * C HOL/HDLC RATIO 2.8 <5.0 - (calc) * N ON HDL CHOLESTEROL 106 <130 - mg/dL (calc) * Deisy Scott 02/24/2025 10:07:57 AM EDT > Patient informedThis lab was reviewed by Deisy Scott on 02/24/2025 at 10:08 AM EDT ?LAB: COMPREHENSIVE METABOLIC PANEL (75768) (Collection Date & Time - 02/20/2025 09:54 AM)* Value Reference Range G LUCOSE 79 65-99 - mg/dL * U SEBASTIÁN NITROGEN (BUN) 13 7-25 - mg/dL * C REATININE 0.56 0.50-1.05 - mg/dL * B UN/CREATININE RATIO SEE NOTE: 6-22 - (calc) * S ODIUM 140 135-146 - mmol/L * P OTASSIUM 4.5 3.5-5.3 - mmol/L * C HLORIDE 102 98-110 - mmol/L * C ARBON DIOXIDE 29 20-32 - mmol/L * C ALCIUM 10.1 8.6-10.4 - mg/dL * P ROTEIN, TOTAL 7.2 6.1-8.1 - g/dL * A LBUMIN 4.7 3.6-5.1 - g/dL * G LOBULIN 2.5 1.9-3.7 - g/dL (calc ) * A LBUMIN/GLOBULIN RATIO 1.9 1.0-2.5 - (calc) * B ILIRUBIN, TOTAL 0.5 0.2-1.2 - mg/dL * A LKALINE PHOSPHATASE 116 37-153 - U/L * A ST 16 10-35 - U/L * A LT 14 6-29 - U/L * E GFR 101 > OR = 60 - mL/min/1 .73m2 * Deisy Scott 02/24/2025 10:07:57 AM EDT > Patient informedThis lab was reviewed by Deisy Scott on 02/24/2025 at 10:08 AM EDT ?LAB: HEMOGLOBIN A1c (496) (Collection Date & Time - 02/20/2025 09:54 AM)* Value Reference Range H EMOGLOBIN A1c 5.8 H <5.7 - % * Deisy Scott 02/24/2025 10:07:57 AM EDT > Patient informedThis lab was reviewed by Deisy Scott on 02/24/2025 at 10:08 AM EDT Notes: continue statin therapy??4.?Anxiety? Notes: continue low dose lexapro??5.?Prediabetes?LAB: LIPID PANEL, STANDARD (7600) (Collection Date & Time - 02/20/2025 09:54 AM)* Value Reference Range T RIGLYCERIDES 100 <150 - mg/dL * C HOLESTEROL, TOTAL 166 <200 - mg/dL * H DL CHOLESTEROL 60 > OR = 50 - mg/dL * L DL-CHOLESTEROL 86 - mg/dL (calc) * C HOL/HDLC RATIO 2.8 <5.0 - (calc) * N ON HDL CHOLESTEROL 106 <130 - mg/dL (calc) * Deisy Scott 02/24/2025 10:07:57 AM EDT > Patient informedThis lab was reviewed by Deisy Scott on 02/24/2025 at 10:08 AM EDT ?LAB: COMPREHENSIVE METABOLIC PANEL (84531) (Collection Date & Time - 02/20/2025 09:54 AM)* Value Reference Range G LUCOSE 79 65-99 - mg/dL * U SEBASTIÁN NITROGEN (BUN) 13 7-25 - mg/dL * C REATININE 0.56 0.50-1.05 - mg/dL * B UN/CREATININE RATIO SEE NOTE: 6-22 - (calc) * S ODIUM 140 135-146 - mmol/L * P OTASSIUM 4.5 3.5-5.3 - mmol/L * C HLORIDE 102 98-110 - mmol/L * C ARBON DIOXIDE 29 20-32 - mmol/L * C ALCIUM 10.1 8.6-10.4 - mg/dL * P ROTEIN, TOTAL 7.2 6.1-8.1 - g/dL * A LBUMIN 4.7 3.6-5.1 - g/dL * G LOBULIN 2.5 1.9-3.7 - g/dL (calc ) * A LBUMIN/GLOBULIN RATIO 1.9 1.0-2.5 - (calc) * B ILIRUBIN, TOTAL 0.5 0.2-1.2 - mg/dL * A LKALINE PHOSPHATASE 116 37-153 - U/L * A ST 16 10-35 - U/L * A LT 14 6-29 - U/L * E GFR 101 > OR = 60 - mL/min/1 .73m2 * Deisy Scott 02/24/2025 10:07:57 AM EDT > Patient informedThis lab was reviewed by Deisy Scott on 02/24/2025 at 10:08 AM EDT ?LAB: HEMOGLOBIN A1c (496) (Collection Date & Time - 02/20/2025 09:54 AM)* Value Reference Range H EMOGLOBIN A1c 5.8 H <5.7 - % * Deisy Scott 02/24/2025 10:07:57 AM EDT > Patient informedThis lab was reviewed by Deisy Scott on 02/24/2025 at 10:08 AM EDT Clinical Notes: continued dietary efforts encouraged??6.?Urge urinary incontinence? Start Gemtesa Tablet, 75 MG, 1 tablet, Orally, Once a day, 30 day(s), 30.?? Clinical Notes: trial of Gemtesa...if not effective will refer to URO for exam?? 7.?BMI 31.0-31.9,adult? Clinical Notes: complicates all aspects of care, actively working on weight loss??8.?Asymptomatic postmenopausal state?Imaging: DEXA Hip and Spine - Screening* * Immunizations: Prevnar PCV-21 (Pneumococcal conjugate 20) : 0.5 mL (Dose No:1) (Route: Intramuscular) given by JESSI Miller on Left Deltoid (Encounter for immunization) * Procedure Codes: 9 0684 PCV21 VACCINE IM, G0009 ADMINISTRATION-PNEUMONIA VACCINE MEDICARE ONLY, G0402 WELCOME TO MEDICARE 1ST YEAR W/O EKG, G8399 PT W/DXA DOCUMENT OR ORDER, 1123F ADVANCED DIRECTIVE - HAS A LIVING WILL, G9899 Screening diagnostic,film,digital results documented and reviewed, 3017F COLORECTAL CA SCREEN DOC REV, G8417 BMI >=30 CALCUATE W/FOLLOWUP, G8510 NEGATIVE SCREENING F/U NOT REQUIRED, G9903 Pt scrn tbco id as non user, G8752 Most recent systolic blood pressure < 140mmhg, G8754 Most recent diastolic blood pressure < 90mmhg, G9744 PATIENT NOT ELIG D/T ACTIVE DX HTN, [address] HEALTH RISK [id number] * Preventive Medicine: Counseling: L iving will H as living will. MITCH Screening: F alls: Future screening for fall risks H ave you had two or more falls in the past year? N o, H ave you had any falls with injury in the past year? N o. Immunizations: i nfluenza H ave you had a flu shot since the most recent Shruthi 1 ? Y es. P neumonia vaccine: Status for Older Adults A re you up-to-date on your pneumonia vaccine? yes or no y es, PCV 21. T dap U TD. S hingrix D iscussed and will consider. C OVID C ompleted series. R SV vaccination C ompleted for season. Screening / Special Tests: M ammogram S t. E normal 2024. P ap Smear s /p hysterectomy for noncancerous reasons. C olonoscopy C ologuard 2022. B one mineral Density N eeded. L tay Cancer Screening N ot indicated - nonsmoker. * Follow Up: 6 Months * * Sign off status: Completed true * Provider: IVAN Arboleda Date: 0 02/20/2025 Generated for Tatum zacarias/Beena/eTkayliitting on: 0 03/03/2025 01:30 PM EDT History and Physical Notes * Examination Category Sub-Category Detail Notes Category Not es General Examination Heart: RRR, No m/r/g/h, Nl S 1S2 Lungs: Clear to auscultatio n bilaterally Abdomen: Soft, NT/ND, BS pres ent Extremities: no clubbing, no dede a, 2+ pedal pulses Skin: without acute rashes Neurologic Exam: Alert and oriented x 3 Peripheral pulses: normal (2+) bilatera lly neck supple,, no thyromeg devika,, no lymphadenopathy, General Pleasant and Coopera tive, NAD on RA Psych Normal Mood/Affect
--- OUTSIDE RECORDS SUMMARY | 2025-03-03 13:30 | XMS_ITS ---
Author Organization Unknown Medications Medication Instructions Effective Dates (start - stop) Status hydrochlorothiazide 12.5 MG / lisinopril 10 MG Oral Tablet [id number]:00:00.000+0 0 :00 - Completed hydrochlorothiazide 12.5 MG / lisinopril 10 MG Oral Tablet [id number]:00:00.000+0 0 :00 - Completed hydrochlorothiazide 12.5 MG / lisinopril 10 MG Oral Tablet [id number]:00:00.000+0 0 :00 - Completed hydrochlorothiazide 12.5 MG / lisinopril 10 MG Oral Tablet [id number]:00:00.000+0 0 :00 - Completed atorvastatin 20 MG Oral Tablet 2 [id number]:00:00.000+00 :00 - Completed atorvastatin 20 MG Oral Tablet 2 [id number]:00:00.000+00 :00 - Completed atorvastatin 20 MG Oral Tablet 2 [id number]:00:00.000+00 :00 - Completed atorvastatin 20 MG Oral Tablet 2 [id number]:00:00.000+00 :00 - Completed cephalexin 500 MG Oral Capsule 2 [id number]:00:00.000+00 :00 - Completed escitalopram 10 MG Oral Tablet 2 [id number]:00:00.000+00 :00 - Completed escitalopram 10 MG Oral Tablet 2 [id number]:00:00.000+00 :00 - Completed escitalopram 10 MG Oral Tablet 2 [id number]:00:00.000+00 :00 - Completed escitalopram 10 MG Oral Tablet 2 [id number]:00:00.000+00 :00 - Completed escitalopram 10 MG Oral Tablet 2 [id number]:00:00.000+00 :00 - Completed Patient Care team information Name Category Status Period Participants - - Proposed period not known -
--- OUTSIDE RECORDS SUMMARY | 2025-03-03 13:30 | XMS_ITS | Patient Health Record ---
Author Organization [facility] Address [address] [place] [address] Care Team Providers Care Lining Closer Name Role Phone Herbert Asencio Primary Care Provider Lois Lara Unavailable [phone] Migration, Provider Unavailable Unavailable Allergies Allergen (clinical drug ingredient) Drug/Non Drug Allergy documented on EMR Reaction Allergy Type Onset Date Status SULFA (uncoded) hives Allergy Acti ve Results Component Value Reference Range Notes HEMOGLOBIN A1c (496) Reviewed date:02/24/2025 10:08:04 AM Interpretation: Performing Lab:[facility] [id number], [place] Aaron Diallo Notes/Report: NON-FASTING; NON-FASTING; NON-FASTING FASTING:YES [...] A1c for diagnosis of diabetes for children. HEMOGLOBIN A1c (496) Reviewed date:08/26/2024 09:28:37 AM Interpretation: Performing Lab:[facility] [address], [place] Aaron Diallo Notes/Report: NON-FASTING; NON-FASTING; NON-FASTING HEMOGLOBIN A1c 5.7 <5.7 % of total Hgb For someone without known diabetes, a hemoglobin [...] A1c for diagnosis of diabetes for children. COMPREHENSIVE METABOLIC PANE L (10651) Reviewed date:08/26/2024 09:28:37 AM Interpretation: Performing Lab:[facility] MK [facility] [id number] [employer] [place] Aaron Diallo Notes/Report: NON-FASTING; NON-FASTING; NON-FASTING GLUCOSE 80 65-99 mg/dL Fasting reference interval UREA NITROGEN (BUN) 10 7-25 mg/dL CREATININE 0.62 0.50-1.05 mg/dL EGFR 99 > OR = 60 mL/min/1.73m2 BUN/CREATININE RATIO SEE NOTE: 6-22 (calc) Not Reported: BUN and Creatinine are within reference range. SODIUM 140 135-146 mmol/L POTASSIUM 4.3 3.5-5.3 mmol/L CHLORIDE 102 98-110 mmol/L CARBON DIOXIDE 27 20-32 mmol/L CALCIUM 9.9 8.6-10.4 mg/dL PROTEIN, TOTAL 7.3 6.1-8.1 g/dL ALBUMIN 4.6 3.6-5.1 g/dL GLOBULIN 2.7 1.9-3.7 g/dL (calc) ALBUMIN/GLOBULIN RATIO 1.7 1.0-2.5 (calc) BILIRUBIN, TOTAL 0.5 0.2-1.2 mg/dL ALKALINE PHOSPHATASE 117 37-153 U/L AST 18 10-35 U/L ALT 18 6-29 U/L COMPREHENSIVE METABOLIC PANE L (69133) Reviewed date:02/24/2025 10:08:04 AM Interpretation: Performing Lab:[facility]OGELIO [facility] [employer] ([employer]), [facility] System[facility]gpbSG[address] Aaron Diallo Notes/Report: NON-FASTING; NON-FASTING; NON-FASTING FASTING:YES [...] 16 10-35 U/L ALT 14 6-29 U/L LIPID PANEL, STANDARD (7600) Reviewed date:02/24/2025 10:08:04 AM Interpretation: Performing Lab:[facility] [id number] [facility], [facility] SystemHtdhVJ[address] Aaron Diallo Notes/Report: NON-FASTING; NON-FASTING; NON-FASTING FASTING:YES [...] Juan Manuel HARRY et al. KODI. 2013;310(19): 4958-9996 (http://education.Triplify.HSTYLE/faq/RAI459) CHOL/HDLC RATIO 2.8 <5.0 (calc) NON HDL CHOLESTEROL 106 <130 mg/dL (calc) For patients with diabetes plus 1 major ASCVD risk factor, treating to a non-HDL-C goal of <100 mg/dL (LDL-C of <70 mg/dL) is considered a therapeutic option. LIPID PANEL, STANDARD (7600) Reviewed date:08/26/2024 09:28:37 AM Interpretation: Performing Lab:CB, [facility] [address], [place]cl[place] Aaron Diallo Notes/Report: NON-FASTING; NON-FASTING; NON-FASTING CHOLESTEROL, TOTAL 166 <200 mg/dL HDL CHOLESTEROL 62 > OR = 50 mg/dL TRIGLYCERIDES 100 <150 mg/dL LDL-CHOLESTEROL 84 Reference range: <100 Desirable range <100 mg/dL for primary prevention; <70 mg/dL for patients with CHD or diabetic patients with > or = 2 CHD risk factors. LDL-C is now calculated using the Samantha calculation, which is a validated novel method providing better accuracy than the Friedewald equation in the estimation of LDL-C. Juan Manuel HARRY et al. KODI. 2013;310(19): 0538-9539 (http://education.Triplify.HSTYLE/faq/PMD620) CHOL/HDLC RATIO 2.7 <5.0 (calc) NON HDL CHOLESTEROL 104 <130 mg/dL (calc) For patients with diabetes plus 1 major ASCVD risk factor, treating to a non-HDL-C goal of <100 mg/dL (LDL-C of <70 mg/dL) is considered a therapeutic option. Medications Medication SIG (Take, Route, Frequency, Duration) Notes Start Date End Date Status GLP-1 Endoscopy Support Specialist - as directed Active Lisinopril-hydroCHLOR Othiazide 10-12.5 MG 1 tab(s) orally once a day for 90 days Active PROBIOTIC FORMULA (BACILLUS COAGULANS) - 1 CAP(S) ORALLY ONCE A DAY *Please review for potential replacement for e-prescription and drug interaction check* Active Lipitor 20 MG 1 tab(s) orally once a day (at bedtime) for 90 days Active B-12 1000 MCG 1 tab(s) orally once a day for 30 day(s) Active Multivitamin - 1 tab(s) orally once a day Active Escitalopram Oxalate 10 MG 1 tab(s) orally once a day for 90 days Active Vitamin D3 125 MCG (5000 UT) as directed orally once a day for 30 day(s) Active Aspirin 81 MG 1 tab(s) orally once a day for 30 day(s) Active Cranberry 500 MG 1 tab po once a day Active Co Q-10 100 MG 1 TAB QD *Please review a nd pick correct strength-formulatio n from [employer] options. If intended option is not shown, discontinue and re-order from Quick Search* Active ZyrTEC Allergy 10 MG 1 tab(s) orally once a day Active Meclizine HCl 25 MG 1 tab(s) orally 3 times a day prn vertigo for 7 day(s) 12/10/2019 Active Gemtesa 75 MG 1 tablet Orally Once a day for 30 day(s) 02/20/2025 Active Immunizations Vaccine Route Administration Date Status Comme nts Prevnar PCV-21 (Pneumococcal conjugate 20) IM Intramuscular 02/20/2025 Administered Influenza-Fluzone 3+years (NON-MEDICARE) IM Intramuscular 06/15/2015 Administered Influenza-Fluzone 3+years (NON-MEDICARE) IM Intramuscular 06/22/2016 Administered Influenza-Fluzone 3+years (NON-MEDICARE) IM Intramuscular 06/05/2017 Administered Influenza-Fluzone 3+years (NON-MEDICARE) IM Intramuscular 06/07/2018 Administered Fluzone High Dose IM Intramuscular 08/22/2024 Administered FLUZONE 6MO - OLDER IM Intramuscular 06/03/2019 Administer ed FLUZONE 6MO - OLDER IM Intramuscular 08/07/2023 Administer ed Flublok IM Intramuscular 07/20/2020 Administered Flublok IM Intramuscular 07/28/2022 Administered Arexvy IM Intramuscular 08/22/2024 Administered Adacel (Tdap) IM Intramuscular 03/15/2016 Administered Problems Problem Type SNOMED Code ICD Code Onset Dates Problem Status W/U Status Risk Notes Problem [id number] Obesity (BMI 30.0-34.9) (E66.9) Active confirmed Problem 00682533 Anxiety (F41.9) Active confirmed Problem 37606160 Hyperlipidemia L DL goal <100 (E78.5) Active confirmed Problem 96288256 Essential hypertension (I10) Active confirmed Problem 444231374 BMI 34.0-34.9,adult (Z68.34) Active confirmed Problem 638300927 BMI 31.0-31.9,adult (Z68.31) Active confirmed Problem 581271393 BMI 33.0-33.9,adult (Z68.33) Active confirmed Problem 66643892 Allergic rhiniti s due to other allergen (J30.89) Active confirmed Problem 83310056 PVC (premature ventricular contraction) (I49.3) Active confirmed Problem 768253912 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) Active confirmed Problem 77076987 Urge urinary incontinence (N39.41) Active confirmed Problem 344858158 Benign paroxysma l positional vertigo, bilateral (H81.13) Active confirmed Problem 630190294 Urinary incontinence, mixed (N39.46) Active confirmed Vital Signs Heart Rate 80 /min 02/20/2025 Temperature 97.5 degrees Fahrenheit 02/20/2025 Blood pressure diastolic 78 mm Hg 02/20/2025 Height 5 ft 8.75 in in 02/20/2025 Blood pressure systolic 112 mm Hg 02/20/2025 Weight 210.2 lbs 02/20/2025 BMI 31.26 kg/m2 02/20/2025 Encounters Encounter Location Date Provider Diagnosis [facility] [address] [facility] [address] [place] [address] 12/14/2024 Provider Migration Acute non-recurrent maxillary sinusitis J01.00 [facility] [address] [place] [address] 08/22/2024 Lois Lara Hyperlipidemia LDL goal <100 E78.5 ; Anxiety F41.9 ; Essential hypertension I10 ; Prediabetes R73.03 ; BMI 28.0-28.9,adult Z68.28 and Immunization(s) administered Z23 [facility] [address] [facility] [address] [place] [address] 10/19/2024 Lois Lara Acute non-recurrent maxillary sinusitis J01.00 and Lower resp. tract infection J22 [facility] [address] [facility] [address] [place] [address] 02/20/2025 Lois Lara Essential hypertensi on I10 ; Welcome to Medicare preventive visit Z00.00 ; Hyperlipidemia LDL goal <100 E78.5 ; Anxiety F41.9 ; Prediabetes R73.03 ; Encounter for immunization Z23 ; Urge urinary incontinence N39.41 ; BMI 31.0-31.9,adult Z68.31 and Asymptomatic postmenopausal state Z78.[address] [facility] [address] [address] 10/07/2024 Lois Lara Assessments Encounter Date Diagnosis (ICD Code) Assessment Notes Treatment Notes Treatment Clinical Notes Section Notes 08/22/2024 Hyperlipidemia LDL goal <100 (ICD-10 - E78.5) continue statin therapy 10/19/2024 Acute non-recurrent maxillary sinusitis (ICD-10 - J01.00) Suspect possible pneumonia as well. Postviral. Recommend starting Augmentin as noted. Continue Flonase, Mucinex, pulmonary toilet and good hydration. Strict return precautions reviewed 10/19/2024 Lower resp. tract infection (ICD-10 - J22) 12/14/2024 Acute non-recurrent maxillary sinusitis (ICD-10 - J01.00) 02/20/2025 Essential hypertension (ICD-10 - I10) Pressure well controlled on current regimen 02/20/2025 Welcome to Medicare preventive visit (ICD-10 - Z00.00) Medicare screening guidelines, vaccination recommendations , safety, HRA reviewed 08/22/2024 Anxiety (ICD-10 - F41.9) continue low dose lexapro 02/20/2025 Hyperlipidemia LDL goal <100 (ICD-10 - E78.5) continue statin therapy 08/22/2024 Essential hypertension (ICD-10 - I10) Pressure well controlled on current regimen, very happy with weight loss. Monitoring labs today as noted. 08/22/2024 Prediabetes (ICD-10 - R73.03) continued dietary efforts encouraged, add exercise, hopeful to maintain weight loss since stopping Wegovy 02/20/2025 Anxiety (ICD-10 - F41.9) continue low dose lexapro 02/20/2025 Prediabetes (ICD-10 - R73.03) continued dietary efforts encouraged 08/22/2024 BMI 28.0-28.9,adult (ICD-10 - Z68.28) 08/22/2024 Immunization(s) administered (ICD-10 - Z23) 02/20/2025 Encounter for immunization (ICD-10 - Z23) 02/20/2025 Urge urinary incontinence (ICD-10 - N39.41) trial of Gemtesa...if not effective will refer to URO for exam 02/20/2025 BMI 31.0-31.9,adult (ICD-10 - Z68.31) complicates all aspects of care, actively working on weight loss 02/20/2025 Asymptomatic postmenopausal state (ICD-10 - Z78.0) Plan Of Treatment Pending Test Test Name Order Date X ray : Knee, Left 07/20/2020 [facility] Hip and Spine - Screening N-Lipid Panel 01/20/2012 N-cmp 01/20/2012 H-CBC with AUTO DIFF 03/15/2016 H-CBC with AUTO DIFF 05/30/2008 H-CBC with AUTO DIFF 01/19/2011 H-IRON & TIBC 01/19/2011 H-VITAMIN B12 03/15/2016 H-FERRITIN 01/19/2011 H-CMP 07/14/2011 H-CMP 01/19/2011 H-CMP 05/30/2008 H-CMP 10/20/2010 H-CMP 11/09/2009 H-CMP 01/30/2017 H-CMP 03/15/2016 H-CMP 02/10/2010 H-BUN 01/28/2015 H-CREATININE SERUM 01/28/2015 H-MAGNESIUM 03/15/2016 H-LIPID PANEL 03/15/2016 H-LIPID PANEL 01/30/2017 H-LIPID PANEL 05/30/2008 H-LIPID PANEL 02/10/2010 H-LIPID PANEL 11/09/2009 H-LIPID PANEL 10/20/2010 H-LIPID PANEL 01/19/2011 H-LIPID PANEL 07/14/2011 H-TSH 05/30/2008 H-TSH 03/15/2016 C-CMP 01/18/2021 C-LIPID PANEL 01/18/2021 Future Test Test Name Order Date H-CMP 07/06/2015 H-LIPID PANEL 07/06/2015 Next Appt Details Provider Name:Lois goldberg, 08/21/2025 09:00:00 AM, [address], [place], [address], Insurance Providers Payer Name Payer Address Payer Phone Subscriber Number Group Number Insured Name Patient Relationship to Insured Coverage Start Date Coverage End Date [employer] MEDICARE [address] [address] [place] [address] [id number] Elizabeth Lopez Self - patient is the insured Medical (General) History Medical History History ICD Code total hysterectomy March 2009 Hypertension hyperlipidemia plantar fasciitis migraines retinal detatchment-left eye Colonoscopy 2012, normal cataract-left eye Basal Cell Cancer removed right chest Surgical History Surgery Date(Month/Year) total hysterectomy 2008 Tubal ligation Tonsillectomy detached retina 2014 bilateral cataract surgery 06/2019 and 1 09/2018 Basal cell removed from chest 08/2020 Right eye surgery 12/2020 Colonoscopy 2012 Hospitalization History Reason Date(Month/Year) Hysterectomy Childbirth
--- OUTSIDE RECORDS SUMMARY | 2025-03-03 13:30 | XMS_ITS | Clinical Summary ---
Author Organization [facility] Address [address] [address] Phone Care Team Providers Care Foiling Machine Operator Name Role Phone Herbert Asencio MD Primary Care Provider [phone] Encounters Date Type Department Care Team Description 12/18/2024 12:12 PM EDT - 12/18/2024 11:59 PM EDT Hospital Encounter [facility] [address] [facility] [place] [address] Herbert Asencio MD Encounter for screening mammogram for malignant neoplasm of breast Discharge Disposition: Home or Self Care from Last 3 Months Surgical History Surgery Date Site/Laterality Comments CATARACT EXTRACTION W/ INTRA OCULAR LENS IMPLANT 07/03/[address] Murtaza Hatch CATARACT EXTRACTION W/ INTRA OCULAR LENS IMPLANT 07/16/[address] Murtaza Hatch Family History Medical History Relation Name Comments Cancer Maternal Grandfather Cancer Paternal Grandfather Relation Name Status Comments Maternal Grandfather leukemi a Paternal Grandfather lung ca ncer Social History Tobacco Use Types Packs/Day Years Used Date Smoking Tobacco: Never Assessed Comments Unknown Sex and Gender Information Value Date Recorded Sex Assigned at Not on file Legal Sex Female 5:05 AM EDT Gender Identity Not on file Sexual Orientation Not on file Obstetrics History Para Term AB IAB SAB Ectopic Multiple Livin g Live Births 3 Last Filed Vital Signs Vital Sign Reading Time Taken Comments Blood Pressure - - Pulse - - Temperature - - Respiratory Rate - - Oxygen Saturation - - Inhaled Oxygen Concentration - - Weight 93 kg (205 lb) 12/18/2024 12:36 PM EDT Height 177.8 cm (5' 10 ) 12/18/2024 12:36 PM EDT Body Mass Index 29.41 12/18/2024 12:36 PM EDT Plan of Treatment Health Maintenance Due Date Last Done Comments Wellness Exam Medicare 1963 Hepatitis C Screening 1977 Cervical Cancer Screening 1980 Pap Smear 1980 HPV/Pap Cotest 1989 DTaP/TDaP/Td (1 - Tdap) 11/15/1996 11/14/1996 Cologuard 2004 Colon Cancer Screening 2004 Colonoscopy 2004 FIT 2004 Sigmoidoscopy 2004 Virtual Colonography 2004 Pneumococcal Vaccine 50+ (1 of 1 - PCV) 2009 Zoster (1 of 2) 2009 COVID-19 Vaccine ( - season) 2024 07/30/2021, 12/02/2020, 11/04/2020 Bone Density Screening 2024 Breast Cancer Screening 12/18/2026 12/19/19, 12/11/2023, 10/27/2022, Additional history exists Influenza Vaccine Completed 08/22/2024, , 07/28/2022, Additional history exists Hepatitis B Vaccine Aged Out No longe r eligible based on patient's age to complete this topic Meningococcal B Vaccine Aged Out No l onger eligible based on patient's age to complete this topic Procedures Procedure Name Priority Date/Time Associated Diagnosis Comments MM MAMMO DIGITAL JOE SCREEN BILAT Routine 12/18/2024 12:40 PM EDT Encounter for screening mammogram for malignant neoplasm of breast from Last 3 Months Results * MM MAMMO DIGITAL JOE SCREEN BILAT (12/18/2024 12:40 PM EDT) Anatomical Region Laterality Modality Breast Bilateral Mammography 12/18/2024 12:4 0 PM EDT Impressions 12/18/2024 1:31 PM EDT Negative ([id number]) RECOMMENDATION: Routine Screening Mammogram in 1 Year Bilateral . . COMMENTS: DISCLAIMER *The patient was notified by MyChart or mail of the results for this examination. *The patient's information was entered into a reminder system with a target due date for the next breast imaging, in accordance with the [employer] and the Society of Breast Imaging recommendations. *Breast Imaging has a false negative rate of 15%. *Any patient with a palpable abnormality, unexplained by breast imaging, should be managed on a clinical basis by the attending physician. Narrative 12/18/2024 1:31 PM EDT EXAM: MM MAMMO DIGITAL JOE SCREEN BILAT EXAM DATE: 12/18/2024 12:40 PM INDICATION: Z12.31-Encounter for screening mammogram for malignant neoplasm of [id number] COMPARISON STUDIES: Compared with prior studies the most recent being 12/11/2023 MM MAMMO DIGITAL JOE SCREEN BILAT at [facility] 10/27/2022 MM MAMMO DIGITAL JOE SCREEN BILAT at [facility] 10/28/2021 MM MAMMO DIGITAL JOE SCREEN BILAT at [facility] TISSUE DENSITY: The breasts are heterogeneously dense, which may obscure small masses. FINDINGS: No mammographic evidence of malignancy. Procedure Note Bina Mcguire MD - 12/18/2024 EXAM: MM MAMMO DIGITAL JOE SCREEN BILAT EXAM DATE: 12/18/2024 12:40 PM INDICATION: Z12.31-Encounter for screening mammogram for malignantneoplasm of [id number] COMPARISON STUDIES: Compared with prior studies the most recent being 12/11/2023 MM MAMMO DIGITAL JOE SCREEN BILAT at [facility] 10/27/2022 MM MAMMO DIGITAL JOE SCREEN BILAT at [facility] 10/28/2021 MM MAMMO DIGITAL JOE SCREEN BILAT at [facility] TISSUE DENSITY: The breasts are heterogeneously dense, which may obscuresmall masses. FINDINGS: No mammographic evidence of malignancy. IMPRESSION: Negative ([id number]) RECOMMENDATION: Routine Screening Mammogram in 1 Year Bilateral . . COMMENTS: DISCLAIMER *The patient was notified by MyChart or mail of the results for this examination. *The patient's information was entered into a reminder system with atarget due date for the next breast imaging, in accordance with the [employer] and the Society of Breast Imaging recommendations. *Breast Imaging has a false negative rate of 15%. *Any patient with a palpable abnormality, unexplained by breast imaging,should be managed on a clinical basis by the attending physician. Herbert Asencio MD IMG MAMMOGRAPHY ORDERABLES F inal Result from Last 3 Months Insurance [employer] MEDICARE PPO MR Care Teams Foiling Machine Operator Relationship Specialty Start Date End Date Herbert Asencio MD [address] [place] [address] PCP - General Internal Medicine-Adolescent Medicine 07/19/17
--- NOTE | 2025-03-03 13:55 | XR_ITS ---
FINAL REPORT CLINICAL HISTORY: SCREENING COMPARISON: None FINDINGS: Using L1-4, the bone mineral density of the spine is 0.826 g/cm2, corresponding to T-score of -2.0. Using the left hip, the bone mineral density of the femoral neck is 0.540 g/cm2, corresponding to a T-score of -2.8. Using the right hip, the bone mineral density of the femoral neck is 0.631 g/cm2, corresponding to a T-score of -2.0. NOTE: T-score: Standard deviation compared with peak bone mass of young adult mean. *Following the recommendations of the International Society of Bone densitometry, classification of hip BMD is based on the lower of two T-scores; total hip or femoral neck. IMPRESSION: Diminished bone mineral density of the right hip and lumbar spine consistent with osteopenia. Diminished bone mineral density of the left hip consistent with osteoporosis. Reviewed, Interpreted and Dictated by Gregorio Garza MD Transcribed by Jeanette Garrido Authenticated and [facility]
== END 2025-03-03 23:59 | disposition home or self-care (01) ==
LOC: RAD 13:15
PROVIDERS: PCP Nurse Practitioner Family; Visit Provider Nurse Practitioner Family
DX: M81.0 Age-related osteoporosis without current pathological fracture (principal); M85.851 Other specified disorders of bone density and structure, right thigh; M85.88 Other specified disorders of bone density and structure, other site
CPT/HCPCS: 77080